=== PATIENT | male | born 1950 | race Caucasian/White ===

== ENCOUNTER 2020-04-16 04:52 | Inpatient (IN) ==
--- NOTE | 2020-03-29 13:21 | PAT Medication Instructions ---
Medication Instructions Date of Service March 29, 2020 Home Medications diltiazem HCl 120 mg PO QPM ezetimibe 10 mg PO QAM fenofibrate 160 mg PO QAM ibuprofen 200 - 800 mg PO Q6H PRN latanoprost 1 drp OPHTHALMIC (EYE) PM levothyroxine [Euthyrox] 50 mcg PO QAM losartan 100 mg PO QPM omeprazole 40 mg PO QAM tadalafil 10 mg PO DAILY PRN warfarin 6.5 mg PO QPM ASK your surgeon for instructions ibuprofen 200 - 800 mg PO Q6H PRN ASK your prescriber and surgeon warfarin 6.5 mg PO QPM STOP taking 48 hours before surgery fenofibrate 160 mg PO QAM DO NOT take the morning of surgery tadalafil 10 mg PO DAILY PRN Take morning of surgery With a small sip of water, OTHERWISE NOTHING TO EAT OR DRINK AFTER MIDNIGHT: ezetimibe 10 mg PO QAM levothyroxine [Euthyrox] 50 mcg PO QAM omeprazole 40 mg PO QAM Take evening before surgery diltiazem HCl 120 mg PO QPM latanoprost 1 drp OPHTHALMIC (EYE) PM losartan 100 mg PO QPM tadalafil 10 mg PO DAILY PRN (if needed) Other Notes If you have any questions please call us at [phone] or [phone] or [phone] or [phone]
--- NOTE | 2020-04-01 13:48 | Anesthesiology Consultation ---
Date of Service April 01, 2020 Assessment & Plan (1) Encounter for pre-operative examination: - Cardiology office visit: 03/25/20: "From a cardiac standpoint stable for planned bilateral hip replacement [patient scheduled for left JJ]." Per PAT assessment on 04/01: Travel screen- Lives in [facility] Uses PPE. No known COVID-19 positive contacts. No current COVID-19 related symptoms. Surgeon arranging preop COVID testing (scheduled 04/11 at [facility]). Awaiting results. - Check coags AM DOS (warfarin instructions per surgeon/prescriber). Chart Review Chart Review: Acceptable Risk for Surgery (pending surgeon-ordered PCP clearance scheduled 04/04 (Dr. Davison)) and Patient seen in Pre Admission Testing Teaching & Discussion Pre-Anesthesia Teaching/Discussion Notes: Instructed NPO after midnight before surgery,except medications with 15 cc of water. Medication instructions provid ed according to the PAT guidelines. History Surgery Operation Date: 04/30/20 11:15 Proposed Procedures p Left Anterior Total Hip Arthroplasty - Kelvin Rosales DO Height/Weight Height: 6 ft Weight: 116 kg Allergies Allergy/AdvReac Type Severity Reaction Status Date / Time [id number]-[id number] Reductase Allergy Mild muscle Verified 03/27/20 10:57 Inhibitor aches Medications Home Medications Medication Instructions Recorded Confirmed Last Taken diltiazem HCl 120 mg PO QPM 03/27/20 03/27/20 Unknown ezetimibe 10 mg PO QAM 03/27/20 03/27/20 Unknown fenofibrate 160 mg PO QAM 03/27/20 03/27/20 Unknown ibuprofen 200 - 800 mg PO Q6H PRN 03/27/20 03/27/20 Unknown latanoprost 1 drp OPHTHALMIC (EYE) PM 03/27/20 03/27/20 Unknown levothyroxine [Euthyrox] 50 mcg PO QAM 03/27/20 03/27/20 Unknown losartan 100 mg PO QPM 03/27/20 03/27/20 Unknown omeprazole 40 mg PO QAM 03/27/20 03/27/20 Unknown tadalafil 10 mg PO DAILY PRN 03/27/20 03/27/20 Unknown warfarin 6.5 mg PO QPM 03/27/20 03/27/20 Unknown Past Medical History Medical History Atrial fibrillation BPH (benign prostatic hyperplasia) CAD (coronary artery disease) stent x1 (2012) GERD (gastroesophageal reflux disease) Hyperlipidemia Hypertension Lyme disease approximately 3 years ago Obesity Osteoarthritis Sleep apnea no device Exercise / Class Metabolic Activity III < 4 Walking/Shop/Light housework Past Surgical History Surgical History History of cardiac radiofrequency ablation (RFA) unsuccessful follow with dr. voss Hx of arthroscopic knee surgery left and right Hx of arthroscopy of shoulder right and left Hx of cardiac cath 03/18/2013 stent placed [place] Dr. Voss Hx of colonoscopy Hx of fusion of cervical spine Hx of hernia repair Hx of LASIK Hx of tonsillectomy Past Anesthesia History No Family Hx of Anesthesia Complications and Other ("slow to wake"/"violent" with anesthesia emergence x1 surgery) History of PONV No Hx of PONV and No Hx of Motion Sickness Social History Smoking Status: Never smoker Do You Dip or Chew Tobacco: No Hx Alcohol Use: Yes Alcohol type: beer alcohol intake frequency: a few times a week Hx Substance Use: No substance use type: does not use Review of Systems Patient denies chest pain, shortness of breath, fever, chills, cough, wheezing, palpitations. Physical Exam Vital Signs VITALS BP 133/91 P 88 TEMP 98.0 SP02 95%RA RESP 16 PHYSICAL Full neck and c-spine range of motion. Full TMJ range of motion. TMD 3 finger breaths Mallampati Score 3 Dentition: intacts, + crowns upper front Lungs: clear throughout to auscultation Cardiac: regular rate and rhythm, no murmurs noted Spine: normal Carotid arteries: negative bruit Extremities: no edema Testing Laboratory Results PT 25.1 Seconds (9.0-12.0) H 04/01/20 14:15 INR 2.5 (0.9-1.1) H 04/01/20 14:15 APTT 40.1 Seconds (21.0-31.0) H 04/01/20 14:15 Urine Color Yellow 04/01/20 Unknown Urine Appearance Clear (Clear) 04/01/20 Unknown Urine pH 5.0 (4.5-7.5) 04/01/20 Unknown Ur Specific [place] 1.018 (1.000-1.030) 04/01/20 Unknown Urine Protein Negative (Negative) 04/01/20 Unknown Urine Glucose (UA) Negative (Negative) 04/01/20 Unknown Urine Ketones Negative (Negative) 04/01/20 Unknown Urine Nitrite Negative (Negative) 04/01/20 Unknown Ur Leukocyte Esterase Negative (Negative) 04/01/20 Unknown Blood Type A Positive 04/01/20 14:15 Antibody Screen NEGATIVE 04/01/20 14:15 03/22/20 WBC 6.41 H/H 17.0/48.3 PLATELETS 268 SODIUM 140 POTASSIUM 4.3 CHLORIDE 107 CO2 25.5 BUN 23.6 CREATININE 1.13 GLUCOSE 99 Electrocardiogram Date: 03/25/20 A fib at 86bpm. PRWP. Low voltage. NS TWA. Chest X-Ray Date: 04/01/20 Findings: + NAD Echocardiogram Date: 03/11/16 "LV 50, EF 60, LVH" per 03/25/20 cardiology office visit. Attempts to obtain official report unsuccessful Stress Test Date: 12/29/17 Type: nuclear (Lexiscan) "NL scan, EF 57" per 03/25/20 cardiology office visit. Attempts to obtain official report unsuccessful. Subsequent cardiac cath done 08/2018 Cardiac Catheterization Date: 08/10/18 Angina pectoris, no evidence of obstructive epicardial coronary disease, most likely "coronary microvascular dysfunction." Patent proximal LAD stent. EF 55%. evidence of LVH consistent with hypertensive heart disease. Medical therapy recommended. Patient "cannot tolerate beta blockers."
--- NOTE | 2020-04-01 15:01 | XRay Report ---
XR chest Pre-admission PA/Lat CLINICAL HISTORY: pat preoperative COMPARISON STUDY: No previous studies for comparison. FINDINGS: The bones soft tissues and hemidiaphragms are normal. The cardiomediastinal silhouette is n ormal. The lungs are clear. The pulmonary vasculature is normal. IMPRESSION: Negative chest. ACT 112: Negative or not required by law. The above report was generated using voice recognition software. It may contain grammatical, syntax or spelling errors. Electronically signed by: Braxton Pollock M.D. 04/01/2020 2:59 PM
[2020-04-01 15:28] LABS: Appearance Urine Clear (Clear); Bilirubin Urine Negative (Negative); Blood Urine Negative (Negative); Color Urine Yellow; Glucose Urine UA Negative (Negative); Ketones Urine Negative (Negative); Leukocyte Esterase Urine Negative (Negative); Nitrite Urine Negative (Negative); Protein Urine Negative (Negative); Specific Gravity Urine 1.018 (1.000-1.030); Urobilinogen Urine Negative (Negative)
[2020-04-01 15:33] LABS: INR 2.5 (0.9-1.1); Partial Thromboplastin Ratio 1.4; Partial Thromboplastin Time 40.1 Seconds (21.0-31.0); Prothrombin Time 25.1 Seconds (9.0-12.0)
--- NOTE | 2020-04-14 11:53 | History & Physical Report ---
Date of Service April 16, 2020 Assessment & Plan (1) Degenerative joint disease of left hip: I have indicated the patient for left anterior total hip replacement. The risks, benefits and complications of surgery were explained to the patient which include but not limited to infection, acute blood loss, DVT/PE, injury to nerves, vessels, bone, soft tissue, arthrofibrosis, chronic pain, failure of the prosthesis, hip dislocation, leg length discrepancy, need for additional surgery, cardiac and pulmonary events and . The patient wished to proceed with surgery and informed consent was obtained at this time. We will plan for restarting the patient's warfarin with lovenox bridge post-operatively for DVT prophylaxis. Upon discharge the patient will be discharged home with home health services. Appropriate clearances by PCP, cardiology were obtained. History of Present Illness Chief Complaint: Left hip DJD/AVN Primary Care Provider: Frederic Davison The patient is a 69 year old male who presents with complaints of severe left hip pain and DJD/AVN. The patient has failed outpatient conservative treatments to this point which included NSAIDs, IA corticosteroid injection. The patient's pain and limited function have progressed to the point where they severely hinder their activities of daily living and they no longer tolerate exercise programs. They are requesting to proceed with total hip replacement surgery. Allergies Allergy/AdvReac Type Severity Reaction Status Date / Time Iehqgah-Ewj-Ukt Reductase Allergy Mild muscle Verified 04/16/20 05:24 Inhibitor aches Home Medications Home Medications Medication Instructions Recorded Confirmed Type diltiazem HCl 120 mg PO QPM 03/27/20 04/16/20 History ezetimibe 10 mg PO QAM 03/27/20 04/16/20 History fenofibrate 160 mg PO QAM 03/27/20 04/16/20 History ibuprofen 200 - 800 mg PO Q6H PRN 03/27/20 04/16/20 History latanoprost 1 drp OPHTHALMIC (EYE) PM 03/27/20 04/16/20 History levothyroxine [Euthyrox] 50 mcg PO QAM 03/27/20 04/16/20 History losartan 100 mg PO QPM 03/27/20 04/16/20 History omeprazole 40 mg PO QAM 03/27/20 04/16/20 History tadalafil 10 mg PO DAILY PRN 03/27/20 04/16/20 History warfarin 6.5 mg PO QPM 03/27/20 04/16/20 History enoxaparin [Lovenox] 40 mg SUBCUT DAILY 04/16/20 04/16/20 History Past Med/Surg History Medical History (Updated 04/16/20 @ 05:38 by Corry Rubio, GERA) Atrial fibrillation BPH (benign prostatic hyperplasia) CAD (coronary artery disease) stent x1 (2012) GERD (gastroesophageal reflux disease) Hyperlipidemia Hypertension Lyme disease approximately 3 years ago Melanoma (Acute) right side Obesity Osteoarthritis Sleep apnea no device Surgical History History of cardiac radiofrequency ablation (RFA) unsuccessful follow with dr. voss Hx of arthroscopic knee surgery left and right Hx of arthroscopy of shoulder right and left Hx of cardiac cath 03/18/2013 stent placed Irma Voss Hx of colonoscopy Hx of fusion of cervical spine Hx of hernia repair Hx of LASIK Hx of tonsillectomy Social History Smoking Status: Never smoker Second Hand Exposure: No; Do You Dip or Chew Tobacco: No; Tobacco Cessation Education Requested by Patient: No Hx Alcohol Use: Yes Alcohol type: beer Hx Substance Use: No Preferred Language: Kenyan Communication Ability: Effective Social Work Instructor Required: No Beliefs That Will Affect Care: None Current Living Situation: Alone Other Information That Helps Us Care for You: No Feels Safe at Home: Yes Safety Concerns: Feels Safe At This Time Review of Systems Review of Systems: All systems reviewed & are unremarkable except as noted in HPI & below Constitutional: as per Subjective / HPI Physical Exam Physical Exam: LLE NVSI +EHL/FHL/TA/GS SILT grossly, +2 DP pulse, compartments soft NT, limited painful ROM of the hip, antalgic gait. Constitutional: WD/WN, vitals as above Eyes: PERRL, conjunctivae normal, anicteric sclerae ENMT: external ear and nose normal, oropharynx normal Neck: trachea midline, no thyromegaly Respiratory: normal respiratory effort, lungs clear to auscultation Cardiovascular: RRR, no murmur, no edema Gastrointestinal (Abdomen): normal bowel sounds, soft, nontender, no hepatosplenomegaly Musculoskeletal: no cyanosis or clubbing, extremities motor strength 5/5 Skin: no rashes, warm and dry Neurologic: patellar DTR's 2+ bilat, sensation intact Psychiatric: A+Ox3, euthymic affect Lymphatic: no cervical or axillary lymphadenopathy Results & Data Results & Data ([facility]) Diagnostic Findings Multiple views of the hip demonstrates severe DJD, AVN of the femoral head with complete loss of the joint space. +osteophytes, +sclerosis, +subchondral cysts.
[2020-04-16] MEDS ORDERED: FAMOTIDINE 20 MG TAB PO SCH (06:00)
[2020-04-16] MEDS ORDERED: CEFAZOLIN 2000MG 2,000 MG/15 ML SYR IV SCH (06:00)
[2020-04-16] MEDS ORDERED: METOCLOPRAMIDE HCL 10 MG TABLET PO SCH (06:00)
[2020-04-16] MEDS ORDERED: TRANEXAMIC ACID 1,000 MG **IV Intra-op IV SCH (06:00)
[2020-04-16] MEDS ORDERED: LR 500ML BOLUS, THEN 15ML/HR IV SCH (06:00)
[2020-04-16] MEDS ORDERED: dexAMETHasone 4 MG TAB PO SCH (06:00)
[2020-04-16] MEDS ORDERED: CeleBREX 200 MG CAP PO SCH (06:00)
[2020-04-16] MEDS ORDERED: ACETAMINOPHEN 500 MG TAB PO SCH (06:00)
[2020-04-16] MEDS ORDERED: ROPIVACAINE 0.5% HCL/PF 150 MG, BUPIVACAINE 0.5% MPF 30 ML, EPINEPHrine 30MG/30ML (OR U... INFIL SCH (06:00)
[2020-04-16] MEDS ORDERED: TRANEXAMIC ACID 1,000 MG **IV Pre-op IV SCH (06:00)
[2020-04-16] MEDS ORDERED: GABAPENTIN 300 MG CAP PO SCH (06:00)
[2020-04-16] MEDS ORDERED: BUPIVACAINE 0.5 % 5 MG/1 ML PF 10ML VIAL ONE (06:18)
[2020-04-16 06:41] LABS: Partial Thromboplastin Ratio 1.2; Partial Thromboplastin Time 32.2 Seconds (21.0-31.0); Prothrombin Time 10.9 Seconds (9.0-12.0)
[2020-04-16] MEDS ORDERED: BACITRACIN INJ 50,000 UNIT VIAL ONE (06:54)
[2020-04-16] MEDS ORDERED: ORTHO JOINT ANESTHETIC ONE (06:54)
--- NOTE | 2020-04-16 07:16 | History & Physical Bridge Note ---
Date of Service April 16, 2020 History & Physical Bridge Note I have examined the patient, reviewed the History & Physical and in the interval since the performance of the History & Physical I have noted the following changes of clinical significance: no changes noted
[2020-04-16] MEDS ORDERED: MIDAZOLAM HCL 1 MG/ML 2ML VIAL ONE (07:19)
[2020-04-16] MEDS ORDERED: fentaNYL citrate 100 MCG/2 ML VIAL ONE (07:19)
[2020-04-16] MEDS ORDERED: PROPOFOL IV EMULSION 10 MG/ML 20 ML VIAL IV ONE ×5 (07:24→09:05)
[2020-04-16] MEDS ORDERED: ONDANSETRON INJ 2 MG/ML 2 ML VIAL IV PRN ×2 (08:53→11:09)
[2020-04-16] MEDS ORDERED: ATROPINE SULFATE 0.1 MG/ML 10ML SYR IV PRN (08:53)
[2020-04-16] MEDS ORDERED: ePHEDrine sulfate 50 MG/ML AMP IV PRN (08:53)
[2020-04-16] MEDS ORDERED: fentaNYL citrate 100 MCG/2 ML VIAL IV PRN (08:53)
[2020-04-16] MEDS ORDERED: GLYCOPYRROLATE 0.2 MG/ML VIAL ONE (09:11)
--- NOTE | 2020-04-16 09:31 | Post Operative Brief Note ---
Immediate Post Op Note v1 Date of Surgery April 16, 2020 Pre & Post Diagnosis Operation Date: 04/16/20 07:30 Pre-Op Diagnosis: Unilateral Primary Osteoarthritis, Left Hip Post-Op Diagnosis: Unilateral Primary Osteoarthritis, Left Hip I identified the patient and participated in the time-out.: Yes Procedure Operation Date: 04/16/20 07:30 Actual Procedures p Left Anterior Total Hip Arthroplasty(Left) - Kelvin Rosales DO Surgeon Kelvin Rosales DO [employer] kitchen Estimated Blood Loss 175 Findings Consistent with Post-Op Diagnosis Fluids 1400 cc LR Specimens Femoral head Drains Hemovac Drain Anesthesia Type Spinal MAC Complications none Disposition Disposition: Recovery Room Overlapping Procedure I was present for: the critical portions of procedure. I was immediately available: during the entire case. Back up surgeon: was not required during procedure.
--- NOTE | 2020-04-16 09:32 | Operative Report ---
Post Operative Report Pre & Post Diagnosis Operation Date: 04/16/20 07:30 Pre-Op Diagnosis: Unilateral Primary Osteoarthritis, Left Hip Post-Op Diagnosis: Unilateral Primary Osteoarthritis, Left Hip I identified the patient and participated in the time-out.: Yes Procedure Operation Date: 04/16/20 07:30 Actual Procedures p Left Anterior Total Hip Arthroplasty(Left) - Kelvin Rosales DO Surgeon Kelvin Rosales DO Jammer Hooker [employer] kitchen Estimated Blood Loss 175 Findings Consistent with Post-Op Diagnosis Fluids 1400 cc LR Specimens Femoral head Anesthesia Type Spinal MAC Complications none Disposition Disposition: Recovery Room Indications The patient is a 69-year-old male who presents with severe progressive left hip DJD who has failed outpatient conservative treatments. I indicated the patient for a total hip replacement and the risks and benefits were explained in detail which included but not limited to infection, bleeding, blood clot, damage to surrounding bone, nerves, vessels, soft tissue, hip dislocation, failure of the prosthesis, leg length discrepancy, need for additional surgery and . The patient agreed to proceed with replacement of the hip and informed consent was obtained. Appropriate clearances were obtained. Description of Procedure COMPONENTS USED: [employer] NephQnect, llcology hip system: Acetabulum size 58, femur size 8 high offset, femoral head 36-3, liner 5836, acetabular screw 25 mm x 1. DESCRIPTION OF PROCEDURE: Following satisfactory spinal anesthesia, the patient was placed supine on the OR table. The right leg was placed in the well leg montgomery and the left leg in the traction device. The left leg was prepared with ChloraPrep and draped sterilely. A surgical timeout was performed, patient identified and site vish verified. Appropriate antibiotics were given. A standard anterior approach in the interval between the sartorius and tensor muscles was performed. Dissection was carried down through subcutaneous tissues. Electrocautery was utilized for hemostasis. Circumflex femoral vessels were identified, tied and ligated. The anterior capsular fat pad was removed and the capsulotomy was performed revealing the arthritic femoral neck and head. A femoral neck cut was made with reciprocating saw and the bone fragments removed. The acetabular self-retraining retractor was placed. Acetabular reaming was completed under fluoroscopic guidance, a 58 shell was impacted into an anatomic position and secured with a dome screw. Local anesthetic was placed and following irrigation, the polyethylene liner was placed. The femur was placed into position of external rotation, extension and adduction. Femoral canal was prepared up to the size 8 high offset. Trial reduction with a 36-3 neck length head showed good soft tissue tension, leg lengths restored, and good fit and fill of the proximal canal using fluoroscopic landmarks. The hip was dislocated. The trial component was removed. The final implant was placed. The hip was irrigated with sterile saline solution and reduced. A Betadine soak was performed. After 3 minutes, the hip was once more irrigated with copious sterile saline solution with bacitracin. Mariajose-incisional soft tissue was injected utilizing [place] [employer] which includes a combination of Ropivicaine 0.5% 150mg, Bupivicaine 0.5%/Epinephrine 1:200,000 30ml, Toradol 30mg, Dexamethasone 4mg, Ketamine 10mg, Clonidine 100mcg and NSS 30ml solution. The capsule was then closed with 1-0 Vicryl interrupted figure of eight sutures. The fascia was closed with a running suture of #1 Vicryl, the subcutaneous tissues with 2-0 Vicryl and the skin with a running subcuticular stitch of 3-0 V-Loc. Dermabond prineo and a dry dressing were applied. The patient tolerated the procedure well and was transported to PACU in stable condition. Due to the complex nature of the procedure, the entire surgery was performed with the operational assistance of [employer] PA-C. The collections assistant, under direct supervision, was involved in the actual performance of all aspects of the surgical procedure including patient positioning, hemostasis, tissue retraction, instrument management and wound closure. I attest to the content of the Intraoperative Record and any orders documented therein. Any exceptions are noted below.
--- NOTE | 2020-04-16 09:56 | Fluoroscopy Report ---
FL hip LT 1V CLINICAL HISTORY: LT ANTERIOR TOTAL COMPARISON STUDY: None. FLUOROSCOPY TIME: 36 seconds. FINDINGS: 2 fluoroscopic spot images of the left hip demonstrate a left total hip arthroplasty. The h ardware is intact. No fracture or dislocation. IMPRESSION: Fluoroscopy provided for left total hip arthroplasty. ACT 112: Negative or not required by law. Electronically signed by: Brian Fowler M.D. 04/16/2020 9:55 AM
--- NOTE | 2020-04-16 10:21 | XRay Report ---
AP PELVIS, CROSSTABLE LATERAL LEFT HIP History: Left total hip arthroplasty. Degenerative arthritis. Postop. FINDINGS: The patient is status post a left total hip arthroplasty. The hardware is intact. No fractu re or dislocation. Moderate to severe osteoarthritis within the right hip. IMPRESSION: Left total hip arthroplasty. No evidence for hardware complication. ACT 112: Negative or not required by law. Electronically signed by: Brian Fowler M.D. 04/16/2020 10:19 AM
--- NOTE | 2020-04-16 10:41 | Anesthesiology Progress Note ---
Date of Service April 16, 2020 Anesthesia Post Procedure Vital Signs Vital Signs: Temp Pulse Pulse Resp BP Pulse Ox 04/16/20 10:30 36.4 C L 74 20 110/72 97 04/16/20 10:20 80 15 102/73 97 04/16/20 10:10 94 H 16 114/67 95 04/16/20 10:00 96 H 18 105/63 97 04/16/20 09:54 36.8 C 80 14 100/65 99 04/16/20 06:34 104 H 18 148/109 H 97 04/16/20 05:38 36.7 C 98 H 18 154/101 H 95 Pain Intensity Left Hip: Pain Intensity: 8 Transfer of Care Handoff Completed per policy Notes Mental Status: alert / awake / arousable and participated in evaluation Nausea / Vomiting: adequately controlled Pain: adequately controlled Airway Patency, RR, SpO2: stable & adequate BP & HR: stable & adequate Hydration State: stable & adequate Neuraxial Anesthesia: was administered and sensory block is resolving Anesthetic Complications: no major complications apparent and Pt Satisfied with anesthetic care
[2020-04-16] MEDS ORDERED: HYDROmorphone INJ 0.5 MG/0.5 ML SYR IV PRN (11:09)
[2020-04-16] MEDS ORDERED: NALOXONE HCL 0.4 MG/1 ML VIAL/CARP IV PRN (11:09)
[2020-04-16] MEDS ORDERED: bisacodyL 10 MG SUPP PR PRN (11:09)
[2020-04-16] MEDS ORDERED: METOCLOPRAMIDE HCL INJ 5 MG/ML 2 ML VIAL IV PRN (11:09)
[2020-04-16] MEDS ORDERED: MAGNESIUM HYDROXIDE SUSP 30 ML UDC PO PRN (11:09)
[2020-04-16] MEDS: SODIUM CHLORIDE 0.9% 1000ML 1,000 ML IV SCH ×2 (11:27→22:14)
[2020-04-16] MEDS: ACETAMINOPHEN 500 MG TAB PO SCH ×2 (14:54→22:13)
[2020-04-16] MEDS: WARFARIN SOD 4 MG TAB PO SCH (15:38)
[2020-04-16] MEDS: WARFARIN SOD 2.5 MG TAB PO SCH (15:39)
[2020-04-16] MEDS ORDERED: CEFAZOLIN 3000MG/72.5 ML BAG IV SCH (16:00)
--- NOTE | 2020-04-16 16:08 | Orthopedic Progress Note ---
Date of Service April 16, 2020 Assessment & Plan (1) Degenerative joint disease of left hip: Status post left anterior total hip arthroplasty -Ancef x24 -DVT prophylaxis: SCDs, teds, warfarin/Lovenox -PT/OT -Weight-bear as tolerates left lower extremity -Postoperative x-ray demonstrates a well aligned well fixed total hip prosthesis without evidence of fracture or dislocation. -A.m. lab -DC planning Admission and Anticipated Discharge Date Admission Date: April 16, 2020 Subjective Post Operative Progress Note Patient seen sitting up in bed, comfortable, denies complaints, pain well controlled, no acute issues. Review of Systems Review of Systems: All systems reviewed & are unremarkable except as noted in HPI & below Constitutional: as per Subjective / HPI Physical Exam Physical Exam: LLE NVSI +EHL/FHL/TA/GS SILT grossly, +2 DP pulse, compartments soft NT, dressing cdi. Constitutional: WD/WN, vitals as above Results & Data ([facility]) Vital Signs (Past 12 Hours) Vital Signs Temp Pulse Pulse Resp BP BP Pulse Ox 04/16/20 14:58 36.5 C 83 16 124/80 95 04/16/20 13:58 36.5 C 76 18 115/75 94 04/16/20 13:00 36.5 C 83 17 131/76 94 04/16/20 12:00 36.5 C 80 17 122/81 95 04/16/20 11:26 36.4 C L 82 14 136/88 96 04/16/20 10:40 63 12 120/69 96 04/16/20 10:30 36.4 C L 74 20 110/72 97 04/16/20 10:20 80 15 102/73 97 04/16/20 10:10 94 H 16 114/67 95 04/16/20 10:00 96 H 18 105/63 97 04/16/20 09:54 36.8 C 80 14 100/65 99 04/16/20 06:34 104 H 18 148/109 H 97 04/16/20 05:38 36.7 C 98 H 18 154/101 H 95
[2020-04-16] MEDS: CEFAZOLIN 3,000 MG in DEXTROSE 5% 50 ML IV SCH ×2 (16:16→23:16)
[2020-04-16] MEDS ORDERED: LOSARTAN POTASSIUM 50 MG TAB PO SCH (21:00)
[2020-04-16] MEDS ORDERED: SENNA 8.6 MG TAB PO SCH (21:00)
[2020-04-16] MEDS ORDERED: LATANOPROST 0.005% OP SOLN 2.5 ML BTL OP SCH (21:00)
[2020-04-16] MEDS ORDERED: dilTIAZem ER 120 MG CAPCR PO SCH (21:00)
[2020-04-16] MEDS: OXYCODONE HCL IR 5 MG TAB (IMMEDIATE RELEASE) PO PRN (22:12)
[2020-04-16] MEDS: DOCUSATE SODIUM 100 MG CAP PO SCH (22:13)
[2020-04-17] MEDS: ACETAMINOPHEN 500 MG TAB PO SCH ×2 (05:20→12:42)
[2020-04-17 06:02] LABS: Basophils # (auto) 0.01 K/uL (0-0.2); Basophils % (auto) 0.1 %; Hematocrit (blood only) 38.9 % (42-52); Hemoglobin 13.7 g/dL (14.0-18.0); Immature Granulocytes # (auto) 0.06 K/uL (0.00-0.02); Immature Granulocytes % (auto) 0.4 %; Lymphocytes # (auto) 1.58 K/uL (1.2-3.4); Lymphocytes % (auto) 9.4 %; Mean Corpuscular Hemoglobin 32.9 pg (25-34); Mean Corpuscular Hgb Conc 35.2 g/dL (32-36); Mean Corpuscular Volume 93.3 fL (80-100); Mean Platelet Volume 9.7 fL (7.4-10.4); Monocytes # (auto) 1.72 K/uL (0.11-0.59); Monocytes % (auto) 10.3 %; Neutrophils # (auto) 13.36 K/uL (1.4-6.5); Neutrophils % (auto) 79.8 %; Platelet Count 292 K/uL (130-400); RDW Coefficient of Variation 12.2 % (11.5-14.5); RDW Standard Deviation 41.4 fL (36.4-46.3); Red Blood Count 4.17 M/uL (4.7-6.1); White Blood Count 16.73 K/uL (4.8-10.8)
[2020-04-17 06:11] LABS: INR 1.1 (0.9-1.1); Prothrombin Time 11.4 Seconds (9.0-12.0)
[2020-04-17 06:30] LABS: BUN Creatinine Ratio 23.9 (10-20); Calcium 8.1 mg/dl (8.5-10.1); Creatinine Clr Calc Pharmacy 84.1 ml/min; Est GFR (African American) 79.5; Est GFR (Non-African American) 68.6; Potassium 4.4 mmol/L (3.5-5.1)
[2020-04-17] MEDS ORDERED: LEVOTHYROXINE SODIUM 50 MCG TABLET PO SCH (06:30)
[2020-04-17] MEDS: OXYCODONE HCL IR 5 MG TAB (IMMEDIATE RELEASE) PO PRN ×2 (07:39→12:42)
--- NOTE | 2020-04-17 07:42 | Orthopedic Progress Note ---
Date of Service April 17, 2020 Assessment & Plan (1) Degenerative joint disease of left hip: Status post left anterior total hip arthroplasty POD#1 -Ancef x24 -DVT prophylaxis: SCDs, teds, warfarin/Lovenox -PT/OT -Weight-bear as tolerates left lower extremity -Postoperative x-ray demonstrates a well aligned well fixed total hip prosthesis without evidence of fracture or dislocation. -A.m. lab - as above, hgb 13.7 -DC planning - home with Admission and Anticipated Discharge Date Admission Date: April 16, 2020 Subjective Post Operative Progress Note Patient seen ambulating in room, comfortable, denies complaints, pain well controlled, no acute issues. Denies F/C/N/V/SOB/CP. Review of Systems Review of Systems: All systems reviewed & are unremarkable except as noted in HPI & below Constitutional: as per Subjective / HPI Physical Exam Physical Exam: LLE NVSI +EHL/FHL/TA/GS SILT grossly, +2 DP pulse, compartments soft NT, dressing cdi. Constitutional: WD/WN, vitals as above Results & Data ([facility]) Vital Signs (Past 12 Hours) Vital Signs Temp Pulse Pulse Resp BP Pulse Ox 04/17/20 06:55 36.6 C 82 17 129/78 98 04/17/20 03:50 36.5 C 88 16 139/75 97 04/16/20 23:04 36.7 C 93 H 16 129/82 96 Laboratory Results 04/17/20 04/17/20 04/17/20 Range/Units 05:29 05:29 05:29 WBC 16.73 H (4.8-10.8) K/uL RBC 4.17 L (4.7-6.1) M/uL Hgb 13.7 L (14.0-18.0) g/dL Hct 38.9 L (42-52) % MCV 93.3 (80-100) fL MCH 32.9 (25-34) pg MCHC 35.2 (32-36) g/dL RDW Std Deviation 41.4 (36.4-46.3) fL RDW Coeff of Flavio 12.2 (11.5-14.5) % Plt Count 292 (130-400) K/uL MPV 9.7 (7.4-10.4) fL Immature Gran % (Auto) 0.4 % Neut % (Auto) 79.8 % Lymph % (Auto) 9.4 % Clinch % (Auto) 10.3 % Eos % (Auto) 0.0 % Baso % (Auto) 0.1 % Neut # (Auto) 13.36 H (1.4-6.5) K/uL Lymph # (Auto) 1.58 (1.2-3.4) K/uL Clinch # (Auto) 1.72 H (0.11-0.59) K/uL Eos # (Auto) 0.00 (0-0.5) K/uL Baso # (Auto) 0.01 (0-0.2) K/uL Immature Gran # (Auto) 0.06 H (0.00-0.02) K/uL PT 11.4 (9.0-12.0) Seconds INR 1.1 (0.9-1.1) Sodium 139 (136-145) mmol/L Potassium 4.4 (3.5-5.1) mmol/L Chloride 111 H (98-107) mmol/L Carbon Dioxide 20 L (21-32) mmol/L Anion Gap 8.0 (3-11) BUN 26 H (7-18) mg/dl Creatinine 1.10 (0.6-1.4) mg/dl Est Cr Clr Drug Dosing 84.1 ml/min Est GFR ( Amer) 79.5 Est GFR (Non-Af Amer) 68.6 BUN/Creatinine Ratio 23.9 H (10-20) Glucose 124 H (70-99) mg/dl Calcium 8.1 L (8.5-10.1) mg/dl
[2020-04-17] MEDS: DOCUSATE SODIUM 100 MG CAP PO SCH (08:31)
[2020-04-17] MEDS ORDERED: MULTIVITAMIN TAB PO SCH (09:00)
[2020-04-17] MEDS ORDERED: ENOXAPARIN INJ 40 MG/0.4 ML SYR SQ SCH (09:00)
[2020-04-17] MEDS ORDERED: EZETIMIBE 10 MG TABLET PO SCH (09:00)
[2020-04-17] MEDS ORDERED: PANTOprazole 40 MG TAB PO SCH (09:00)
[2020-04-17] MEDS ORDERED: FENOFIBRATE NANOCRYSTALLIZED 145 MG TABLET PO SCH (09:00)
[2020-04-17] MEDS ORDERED: Nursing to Pharmacy Communication SCH (11:00)
[2020-04-17 11:26] VITALS: BP 126/80; PULSE 85; TEMP 97.7; O2SAT 97
[2020-04-17] MEDS: WARFARIN SOD 2.5 MG TAB PO SCH (12:41)
[2020-04-17] MEDS: WARFARIN SOD 4 MG TAB PO SCH (12:41)
--- NOTE | 2020-04-17 21:02 | Discharge Summary ---
Date of Service April 17, 2020 Admission HPI Per Admitting Provider The patient is a 69 year old male who presents with complaints of severe left hip pain and DJD/AVN. The patient has failed outpatient conservative treatments to this point which included NSAIDs, IA corticosteroid injection. The patient's pain and limited function have progressed to the point where they severely hinder their activities of daily living and they no longer tolerate exercise programs. They are requesting to proceed with total hip replacement surgery. Principal Diagnosis Left anterior total hip replacement -Left hip DJD/AVN Discharge Exam LLE NVSI +EHL/FHL/TA/GS SILT grossly, +2 DP pulse, compartments soft NT, dressing cdi. Constitutional WD/WN, vitals as above Discharge Data Allergies Allergy/AdvReac Type Severity Reaction Status Date / Time Jocybyj-Clu-Trq Reductase Allergy Mild muscle Verified 04/16/20 05:24 Inhibitor aches Consultations 04/17/20 08:00 Consult Case Management - Discharge Planning Routine Procedures Performed Operation Date: 04/16/20 07:30 Actual Procedures p Left Anterior Total Hip Arthroplasty(Left) - Kelvin Rosales DO Ordered Studies 04/16/20 07:30 FL fluoroscopy <1hr Routine FL hip LT 1V Routine Hospital Course (1) Degenerative joint disease of left hip: The patient is a 69 -year-old male who presents with long standing history of severe left hip DJD/AVN and failed outpatient conservative treatments. The patient's symptoms have progressed to the point where it has been difficult to perform even normal activities of daily living. I indicated the patient for a left anterior total hip arthroplasty, the risks, benefits and complications of the procedure include but not limited to infection, bleeding, damage to bone, nerves, vessels, surrounding soft tissue, may develop blood clots, loss of function, leg length discrepancy, dislocation, failure of the components, loosening of the components, the need for additional surgery and . The patient wished to proceed with surgery at this time and informed consent was obtained. Hospital Course: On 04/16/20 the patient was taken to the operating room, adequate anesthesia admi nistered and underwent a left anterior total hip arthroplasty. The patient tolerated the procedure well and was taken to the PACU in stable condition. Post-operatively the patient was started on a DVT ppx medication and given appropriate IV antibiotics. Consults were placed to physical therapy, occupational therapy and case management. On POD#1, the patient did well overnight and their pain was well controlled. Labs were drawn and the Hgb was 13.7. The patient progressed well with PT. Dressings were changed at this time and the incision was clean, dry and intact. The patients hospital stay was relatively uneventful and they were deemed stable by the orthopedic team and consultants to be discharged home with HH on 04/16/20. Discharge Instructions: Upon discharge the patient may weight bear as tolerates through their operative extremity. They were instructed to keep the incision clean and dry at all times. The patient may shower but should not submerge the incision, avoid bathing, pools and hot tubes. The patient was given a script for pain medication and should take as instructed. The patient was given a script for DVT ppx Lovenox 40mg daily and his warfarin restarted and should take as directed. The patient was instructed to not drive or travel for long distances until cleared to do so. If the patient develops any symptoms of fevers, chills, nausea, vomiting, increased redness, swelling, pain or drainage from the surgical site, they should notify the office and/or proceed to the nearest emergency room. The patient should follow up in 10-14 days after surgery for their routine post-operative follow-up appointment and should call the office to confirm the date and time. Status post left anterior total hip arthroplasty POD#1 -Ancef x24 -DVT prophylaxis: SCDs, teds, warfarin/Lovenox -PT/OT -Weight-bear as tolerates left lower extremity -Postoperative x-ray demonstrates a well aligned well fixed total hip prosthesis without evidence of fracture or dislocation. -A.m. lab - as above, hgb 13.7 -DC planning - home with Total Time Total Time Spent Total Time Spent (In Minutes): 30 Discharge Plan Discharge Items Patient Disposition: Home - Home Health Services Reason For Visit: Unilateral Primary Osteoarthritis, Left Hip Discharge Diagnosis: Left anterior total hip replacement -Left hip DJD/AVN Condition on Discharge: Good Activity: Per Instructions section Lifting: Wait until after follow-up appointment Bathing: Keep incision dry Bathing Comment: No bathing, hot tubs or pools Sexual Activity: Wait until after follow-up appointment Exercise/Sports: Wait until after follow-up appointment Driving/Machine Use: No driving Weightbearing: Full weightbearing Non-emergency contact: Primary Care Provider and Surgeon Call non-emergency contact if: you have any medication questions, your symptoms worsen, your pain is not controlled, your pain is worsening, your pain is unusual for you, your pain is concerning for you, you have a fever, your temperature is above 101, your wound has increased redness, your wound has increased drainage and your wound pain has increased Follow-up/Referrals: Frederic Davison D.O. [Primary Care Provider] - Diet: Regular Addtl Attending Provider Instructions: ACTIVITY RECOMMENDATIONS: SELF CARE INSTRUCTIONS AFTER TOTAL HIP REPLACEMENT : Direct Anterior Approach Until the incision and soft tissues around your hip have healed, there is a possibility that the hip prosthesis could dislocate. A. Hip flexion ( Up & Down out of chair or steps ) may be difficult. This is normal. B. Numbness in front of the thigh is also normal for a few weeks. C. Use hand rails when walking on stairs. D. Wear low heeled shoes with non-slip soles. E. Be sure that your floors are free of things that could trip you - throw rugs, electrical cords, small objects. Avoid wet and waxed floors, especially with crutches and canes. F. Try to walk several times a day with rest periods between. G. Continue with all the exercises taught to you in the hospital. Again, make walking a part of your daily routine. SPECIAL CARE INSTRUCTIONS: VERY IMPORTANT TO READ AND REVIEW A. You may still be at risk for phlebitis and blood clots. 1. Wear surgical stockings (JANA hose) for 2 weeks after surgery to improve circulation and reduce swelling. 2. Take Lovenox 40mg daily and your home medicatio Warfarin or as directed by your doctor. This is your blood thinner. 3. High risk patients may be prescribed a stronger blood thinner if necessa ry. 4. If you are on Coumadin normally, your family doctor/data processing systems consultant should monitor your blood work. Expect a phone call the day of or the day after bloodwork is drawn to adjust your dosage. B. You must take antibiotics before having dental work, bladder, bowel and other surgery. Your doctor will provide you with a permanent card to carry describing precautions. C. Call [facility] if you have a fever, redness or swelling around the incision, cloudy drainage from incision, or sudden increase in pain in your hip, not relieved by your regular pain medication. D. Please call the office at if you have any concerns or questions about your operation or recovery. * YOU MAY SHOWER, NO TUB BATHS UNTIL CLEARED BY YOUR DOCTOR. - Keep an extra close eye on the top portion of your incision. Be sure to keep clean & dry. * WEAR JANA HOSE 20 HOURS PER DAY FOR 2 WEEKS. * YOU MAY PROGRESS FROM A WALKER, TO A CANE, TO INDEPENDENT AT YOUR OWN PACE. * MOST PATIENTS WILL HAVE HOME NURSING FOR THERAPY. IF YOU DECIDE TO DO OUTPATIENT PHYSICAL THERAPY, PLEASE SCHEDULE THIS 3 TIMES PER WEEK. * DERMABOND Prineo- This is a mesh tape dressing that is covered with glue. It should remain in place until the incision is properly healed, usually 10-14 days. This dressing is designed to naturally slough off. You may trim the excess mesh tape as it peels off. Incision may be briefly wet in a shower. Dry immediately by blotting with a clean, dry towel. Do not bath or swim until instructed by your doctor. Do not scratch, rub, or pick at the dressing. Do not apply any topical ointments or lotions until dressing is completely removed and/or instructed by your doctor. There may be a small piece of suture material at one end of your incision. Do not pull or trim this. If it is bothersome or catching on clothing, you may cover it with a band-aid. FOLLOW UP VISIT: If appointment is not already scheduled: Please call [facility] to make a follow-up appointment for 2 weeks after your surgery at . Pending Studies at Discharge: No Stand-Alone Forms: My Issue, Opioid Pain Management, Smoking Cessation Medications and DC Order Prescriptions: New acetaminophen 500 mg Tablet 1,000 mg PO Q8 PRN (Reason: pain/fevers) Qty: 90 RF: 0 oxycodone 5 mg Tablet 5 mg PO Q6H MDD 4 PRN (Reason: pain) Qty: 30 RF: 0 enoxaparin 40 mg/0.4 mL Syringe 40 mg subcut Q24H Qty: 7 RF: 0 sennosides [Senokot] 8.6 mg Tablet 17.2 mg PO HS PRN (Reason: constipation) Qty: 28 RF: 0 Continued latanoprost 0.005 % Drops 1 drp OPHTHALMIC (EYE) PM RF: 0 omeprazole 40 mg Capsule,Delayed Release(Dr/Ec) 40 mg PO QAM RF: 0 warfarin 6 mg Tablet 6.5 mg PO QPM RF: 0 diltiazem HCl 120 mg Tablet 120 mg PO QPM RF: 0 levothyroxine [Euthyrox] 50 mcg Tablet 50 mcg PO QAM RF: 0 losartan 100 mg Tablet 100 mg PO QPM RF: 0 ezetimibe 10 mg Tablet 10 mg PO QAM RF: 0 tadalafil 10 mg Tablet 10 mg PO DAILY PRN (Reason: Sexual Activity) RF: 0 fenofibrate 160 mg Tablet 160 mg PO QAM RF: 0 Discontinued ibuprofen 200 mg Capsule 200 - 800 mg PO Q6H PRN (Reason: Pain) RF: 0 enoxaparin [Lovenox] 40 mg/0.4 mL Syringe 40 mg SUBCUT DAILY RF: 0 Discharge Orders: Discharge Order (Routine); Ordered 04/17/20 Ordered By: Kelvin Rosado/Other Patient Handouts: DVT Post Op Prevention, Total Hip Replacement, Understanding Hip Replacement Admission Data Admit Date/Time: 04/16/20 10:02 Attending Provider: Kelvin Rosales Admit Provider: Kelvin Rosales Primary Care Provider: Frederic Davison Other Providers: [facility],Home Health Other Interventions: Discharge Summary Assessment (RN) Last Done: 04/17/20 10:23
== END 2020-04-17 13:04 | disposition home health service (06) | DRG 470 ==
LOC: ASU 04:52 → 3E 10:02